=== PATIENT | female | born 1935 | race Caucasian/White ===

== ENCOUNTER → 2016-09-24 | Outpatient (CLI) | payer OTHER | LOC: FIMAGING 12:25 | PROVIDERS: ATTEND Physician Assistant | DX: M41.56 Other secondary scoliosis, lumbar region (principal); M47.896 Other spondylosis, lumbar region; M43.16 Spondylolisthesis, lumbar region ==

== ENCOUNTER 2016-11-03 06:06 | Emergency (ER) | payer OTHER ==
[2016-11-03] MEDS ORDERED: NS 1,000 ML IV ONE (06:34)
--- NOTE | 2016-11-03 06:39 | EDPHY ---
H & P Stated Complaint: retention, painful urination Source: Patient, EMS - Personal History Current Tetanus/Diphtheria Vaccine: Yes Current Tetanus Diphtheria and Acellular Pertussis (TDAP): Yes Tetanus Vaccine Date: 8 years ago - Medical/Surgical History Hx Asthma: No Hx Chronic Respiratory Disease: No Hx Diabetes: No Hx Cardiac Disease: Yes Hx Renal Disease: No Hx Cirrhosis: No Hx Alcoholism: No Hx HIV/AIDS: No Hx Splenectomy or Spleen Trauma: No Other PMH: LOW BACK PAIN,HTN,HIGH CHOL, KNEE SURGERY 07/2013/cardiac stents - Social History Smoking Status: Former smoker Time Seen by Provider: 11/03/16 06:13 HPI/ROS: HPI The patient presents with lower abdominal pains which have been present for the last several days and getting progressively worse. The pain is achy in nature and feels like a muscle strain to her. She has had difficulty urinating and this is been worse today. She was last able to urinate about 12 hours ago and feels she is retaining urine. She deals with constipation usually because of the opiate pain medication she takes for lower back pain, and says this is no worse. She has been coughing for the last 2 weeks, she was seen by her primary care doctor for this and diagnosed with an upper respiratory tract infection. She thinks she may have pulled a muscle from coughing.. REVIEW OF SYSTEMS Constitutional: No fever, no chills. Eyes: No discharge. ENT: No sore throat. Cardiovascular: No chest pain, no palpitations. Respiratory: Positive for cough, no shortness of breath. Gastrointestinal: See HPI Genitourinary: No hematuria. Musculoskeletal: No back pain. Skin: No rashes. Neurological: No headache. PMHx: Primary biliary cirrhosis, CAD, chronic low back pain Soc Hx: Lives at home with her PHYSICAL General Appearance: Alert, no distress Eyes: Pupils equal and round no pallor or injection ENT, Mouth: Mucous membranes moist Respiratory: There are no retractions, lungs are clear to auscultation Cardiovascular: Regular rate and rhythm Gastrointestinal: Abdomen is soft with tenderness in the lower quadrants without any rebound or guarding Neurological: A&O, moves all extremities Skin: Warm and dry, no rashes Musculoskeletal: Neck is supple non tender Extremities: symmetrical, full range of motion Psychiatric: Patient is oriented X 3, there is no agitation (Riguzzi,Sylvia) Constitutional: Initial Vital Signs Temperature (C) 36.8 C 11/03/16 06:08 Heart Rate 88 11/03/16 06:08 Respiratory Rate 16 11/03/16 06:08 Blood Pressure 157/105 H 11/03/16 06:08 O2 Sat (%) 94 11/03/16 06:08 O2 Delivery Mode Room Air O2 (L/minute) 2 Allergies/Adverse Reactions: Sulfa (Sulfonamide Antibiotics) Allergy (Verified 02/06/15 13:23) Home Medications: Medication Instructions Recorded Atorvastatin Calcium [Lipitor 20 20 mg PO DAILY 12/12/12 mg (*)] Cyclobenzaprine [Flexeril 10 MG 10 mg PO DAILY PRN 12/12/12 (*)] DULoxetine [Cymbalta 60 MG (*)] 60 mg PO DAILY 12/12/12 Diazepam [Valium 5 MG (*)] 5 mg PO DAILY PRN 12/12/12 Oxycodone HCl/Acetaminophen 1 each PO QID PRN 12/12/12 [Percocet 7.5-325 mg Tablet] Ranitidine HCl [Ranitidine HCl 150 150 mg PO BID 12/12/12 mg] Ursodiol 300 mg PO HS 12/12/12 CALCIUM CARBONATE/VITAMIN D3 2 tab PO DAILY 06/27/13 [CALCIUM + D 600 MG TABLET] Multivitamins [Multivitamin (*)] 1 each PO DAILY 06/27/13 Ursodiol [Actigall 300MG (*)] 600 mg PO DAILY 06/30/13 Polyethylene Glycol 3350 [Miralax 17 gm PO DAILY 10/03/13 17 gm (*)] Zolpidem Tartrate [Ambien 5MG (*)] 5 mg PO HS 10/03/13 Aspirin 325 mg PO DAILY #0 tablet 10/06/13 Clopidogrel Bisulfate [Plavix (*)] 75 mg PO DAILY #30 tab 10/06/13 Beta-Carotene(A) W-C & E/Min 1 tab PO BID 11/17/13 [Ocuvite] Labetalol HCl [Trandate 200 mg (*)] 200 mg PO BID 11/17/13 Losartan Potassium 12/18/14 AZITHROMYCIN [Z-PACK] 250 mg PO DAILY #6 tab 11/03/16 Cephalexin [Keflex (*)] 500 mg PO Q6H #28 cap 11/03/16 Medical Decision Making - Diagnostics Imaging Results: Imaging Impressions Chest X-Ray 11/03/16 06:34 Impression: 1. Early or impending CHF. 2. Suspect underlying left lower lobe pneumonia 3. New T11 compression. The patient Would benefit from a DEXA scan and possibly bone building pharmacologic intervention. Results discussed with Dr. Tracey at 7:35 AM Chest x-ray two views shows no infiltrate, interpreted by me, radiology interpretation is pending. (Sylvia River) ED Course/Re-evaluation: 6:15 a.m.- I met the paramedics at the bedside to obtain their report. Our nurse placed a Barreto with about 100 mL of urine out. The urine did appear cloudy. I performed an ultrasound of the bladder to look for any distension, however the bladder appeared decompressed. Basic labs will be checked and CT scan was ordered. I have also ordered a chest x-ray for the patient's cough. 7:00 a.m.- The patient's UA has returned demonstrating signs of urinary tract infection. She will be given ceftriaxone 1 g for this. Chest x-ray was performed and shows no signs of pneumonia. She also has a leukocytosis on her lab results with elevated lipase and alkaline phosphatase which I attribute to her primary biliary cirrhosis. She is currently awaiting a CT scan. The case will be signed out to the oncoming provider Dr. Tracey for ultimate disposition. (Sylvia River) 0740 chest x-ray results discussed with Dr. Rogers. Patient has a new left lower lobe infiltrate. Also has signs of early congestive heart failure and a new T11 compression fracture. CT scan results are not yet back. [address] Philippe[address] scan shows constipation. There is a left lower lobe changes consistent with an infiltrate. No other acute intra- abdominal findings. Given the urine and likely respiratory infection I will cover her with Keflex and azithromycin. Barreto catheter will be removed. She will follow up with her primary care doctor, Dr. Boyd, in 2-3 days for re- evaluation. (Avtar Tracey) Differential Diagnosis: This is an 81-year-old female with primary biliary cirrhosis, lower back pain, CAD who presents from home brought in by ambulance for lower abdominal pain associated with difficulty urinating. Differential diagnosis includes urinary retention, urinary tract infection, constipation, colitis, diverticulitis. (Sylvia River) - Data Points Laboratory Results: Laboratory Results 11/03/16 06:10 11/03/16 06:10 11/03/16 11/03/16 11/03/16 06:25 06:10 06:10 WBC 14.48 10^3/uL H 10^3/uL (3.80-9.50) RBC 4.72 10^6/uL 10^6/uL (4.18-5.33) Hgb 12.6 g/dL g/dL (12.6-16.3) Hct 38.2 % % (38.0-47.0) MCV 80.9 fL L fL (81.5-99.8) MCH 26.7 pg L pg (27.9-34.1) MCHC 33.0 g/dL g/dL (32.4-36.7) RDW 14.9 % % (11.5-15.2) Plt Count 580 10^3/uL H 10^3/uL (150-400) MPV 8.5 fL L fL (8.7-11.7) Neut % (Auto) 70.8 % % (39.3-74.2) Lymph % (Auto) 17.7 % % (15.0-45.0) Hampton % (Auto) 7.9 % % (4.5-13.0) Eos % (Auto) 2.2 % % (0.6-7.6) Baso % (Auto) 0.5 % % (0.3-1.7) Nucleat RBC Rel Count 0.0 % % (0.0-0.2) Absolute Neuts (auto) 10.26 10^3/uL H 10^3/uL (1.70-6.50) Absolute Lymphs (auto) 2.56 10^3/uL 10^3/uL (1.00-3.00) Absolute Monos (auto) 1.14 10^3/uL H 10^3/uL (0.30-0.80) Absolute Eos (auto) 0.32 10^3/uL 10^3/uL (0.03-0.40) Absolute Basos (auto) 0.07 10^3/uL 10^3/uL (0.02-0.10) Absolute Nucleated RBC 0.00 10^3/uL 10^3/uL (0-0.01) Immature Gran % 0.9 % % (0.0-1.1) Immature Gran # 0.13 10^3/uL H 10^3/uL (0.00-0.10) Sodium 133 mEq/L L mEq/L (134-144) Potassium 5.0 mEq/L mEq/L (3.5-5.2) Chloride 92 mEq/L L mEq/L (97-110) Carbon Dioxide 29 mEq/l mEq/l (22-31) Anion Gap 12 mEq/L mEq/L (8-16) BUN 19 mg/dL mg/dL (7-23) Creatinine 0.6 mg/dL mg/dL (0.6-1.0) Estimated GFR > 60 Glucose 99 mg/dL mg/dL (70-100) Calcium 9.7 mg/dL mg/dL (8.5-10.4) Total Bilirubin 0.5 mg/dL mg/dL (0.1-1.4) Conjugated Bilirubin 0.4 mg/dL mg/dL (0.0-0.5) Unconjugated Bilirubin 0.1 mg/dL mg/dL (0.0-1.1) AST 25 IU/L IU/L (14-46) ALT 34 IU/L IU/L (9-52) Alkaline Phosphatase 317 IU/L H IU/L (38-126) Total Protein 7.5 g/dL g/dL (6.3-8.2) Albumin 3.8 g/dL g/dL (3.5-5.0) Lipase 323.0 IU/L H IU/L (23-300) Urine Color YELLOW Urine Appearance MODERATELY TURBID Urine pH 5.0 (5.0-7.5) Ur Specific Hammond 1.017 (1.002-1.030) Urine Protein NEGATIVE (NEGATIVE) Urine Ketones NEGATIVE (NEGATIVE) Urine Blood NEGATIVE (NEGATIVE) Urine Nitrate POSITIVE H (NEGATIVE) Urine Bilirubin NEGATIVE (NEGATIVE) Urine Urobilinogen NEGATIVE EU EU (0.2-1.0) Ur Leukocyte Esterase 3+ H (NEGATIVE) Urine RBC 1-3 /hpf /hpf (0-3) Urine WBC 50-182 /hpf H /hpf (0-3) Ur Epithelial Cells NONE SEEN /lpf /lpf (NONE-1+) Urine Bacteria 3+ /hpf H /hpf (NONE SEEN) Urine Mucus TRACE /lpf /lpf (NONE-1+) Urine Glucose NEGATIVE (NEGATIVE) Medications Given: Discontinued Medications Hydromorphone HCl (Dilaudid) 0.5 mg IVP EDNOW ONE Stop: 11/03/16 07:02 Last Admin: 11/03/16 07:02 Dose: 0.5 mg Sodium Chloride (Ns) 1,000 mls @ 0 mls/hr IV ONCE ONE PRN Reason: Wide Open Stop: 11/03/16 06:35 Last Admin: 11/03/16 06:45 Dose: 1,000 mls Ceftriaxone Sodium/Dextrose (Rocephin 1 Gm (Premix)) 50 mls @ 100 mls/hr IV EDNOW ONE PRN Reason: Protocol Stop: 11/03/16 07:20 Last Admin: 11/03/16 07:00 Dose: 50 mls Departure - Departure Disposition: Home, Routine, Self-Care Clinical Impression: Pneumonia Urinary tract infection Qualifiers: Urinary tract infection type: acute cystitis Hematuria presence: without hematuria Qualified Code(s): N30.00 - Acute cystitis without hematuria Condition: Good Instructions: Urinary Tract Infection in Women (ED), Bacterial Pneumonia (ED) Additional Instructions: Take her full course of antibiotics. Follow up with Dr. Boyd in 2-3 days for re-evaluation. Return to the emergency depart for increasing fevers, chills, cough, shortness of breath, pain, or any other concerns. Referrals: Lindsey Boyd MD [Primary Care Provider] - As per Instructions Prescriptions: AZITHROMYCIN [Z-PACK] 250 mg PO DAILY #6 tab Cephalexin [Keflex (*)] 500 mg PO Q6H #28 cap
[2016-11-03 06:42] LABS: % IMMATURE GRANULYOCYTES 0.9 % (0.0-1.1); ABSOLUTE IMMATURE GRANULOCYTES 0.13 10^3/uL (0.00-0.10); ADD DIFF? NO; ADD MORPH? NO; ADD SCAN? NO; ATYPICAL LYMPHOCYTE FLAG 0 (0-99); FRAGMENT RBC FLAG 0 (0-99); HEMATOCRIT 38.2 % (38.0-47.0); HEMOGLOBIN 12.6 g/dL (12.6-16.3); LEFT SHIFT FLG 10 (0-99); LIPEMIA HEMOLYSIS FLAG 80 (0-99); MEAN CELL HEMOGLOBIN 26.7 pg (27.9-34.1); MEAN CELL VOLUME 80.9 fL (81.5-99.8); MEAN PLATELET VOLUME 8.5 fL (8.7-11.7); PLATELET CLUMPS FLAG 10 (0-99); PLATELET COUNT 580 10^3/uL (150-400); RED BLOOD CELL COUNT 4.72 10^6/uL (4.18-5.33); RED CELL DISTRIBUTION WIDTH 14.9 % (11.5-15.2)
[2016-11-03 06:45] LABS: COLOR YELLOW; LEUKOCYTE ESTERASE,URINE 3+ (NEGATIVE); NITRITE,URINE POSITIVE (NEGATIVE)
[2016-11-03 06:48] LABS: ALANINE AMINOTRANSFERASE 34 IU/L (9-52); ALBUMIN 3.8 g/dL (3.5-5.0); ALKALINE PHOSPHATASE 317 IU/L (38-126); ANION GAP 12 mEq/L (8-16); ASPARTATE AMINOTRANSFERASE 25 IU/L (14-46); BILIRUBIN,TOTAL 0.5 mg/dL (0.1-1.4); BILIRUBIN-CONJUGATED 0.4 mg/dL (0.0-0.5); BILIRUBIN-UNCONJUGATED 0.1 mg/dL (0.0-1.1); CALCIUM 9.7 mg/dL (8.5-10.4); CARBON DIOXIDE 29 mEq/l (22-31); CHLORIDE 92 mEq/L (97-110); CREATININE 0.6 mg/dL (0.6-1.0); GLOMERULAR FILTRATION RATE > 60; GLUCOSE 99 mg/dL (70-100); SODIUM 133 mEq/L (134-144); TOTAL PROTEIN 7.5 g/dL (6.3-8.2)
[2016-11-03 06:49] LABS: MUCUS TRACE /lpf (NONE-1+); WBC,URINE 50-182 /hpf (0-3)
[2016-11-03 06:52] LABS: BACTERIA 3+ /hpf (NONE SEEN)
[2016-11-03] MEDS ORDERED: HYDROmorphONE/DILAUDID 1 MG/ML SYR ONE (06:53)
[2016-11-03] MEDS ORDERED: IOPAMIDOL (ISOVUE-300) 100 ML BTL IV ONE (06:55)
[2016-11-03] MEDS ORDERED: HYDROmorphONE/DILAUDID 1 MG/ML SYR IVP ONE (07:01)
[2016-11-03 07:30] VITALS: RESP 14
[2016-11-03 08:11] VITALS: PULSE 77; O2SAT 94
[2016-11-03 09:03] VITALS: BP 153/73; TEMP 98.1
== END 2016-11-03 09:01 | disposition home or self-care (01) ==
LOC: EDUNIT#
PROC: 0T9B70Z Drainage of Bladder with Drainage Device, Via Natural or Artificial Opening (ICD-10-PCS; principal; 2016-11-03)
DX: N30.00 Acute cystitis without hematuria (principal); J18.9 Pneumonia, unspecified organism; I10 Essential (primary) hypertension; I25.10 Atherosclerotic heart disease of native coronary artery without angina pectoris; Z79.82 Long term (current) use of aspirin; Z87.891 Personal history of nicotine dependence; Z95.5 Presence of coronary angioplasty implant and graft
CPT/HCPCS: 51702; 74177; 96365; 96375; 99285; J0696; J1170; Q9967

== ENCOUNTER → 2016-11-05 | Outpatient (CLI) | payer OTHER | LOC: FIMAGING 16:09 | PROVIDERS: ATTEND Family Medicine | DX: S22.080A Wedge compression fracture of T11-T12 vertebra, initial encounter for closed fracture (principal); X58.XXXA Exposure to other specified factors, initial encounter ==

== ENCOUNTER 2016-11-13 13:38 | Day surgery (SDC) | payer OTHER ==
[2016-11-13] MEDS ORDERED: fentaNYL 100 MCG/2 ML INJ ONE (14:50)
[2016-11-13] MEDS ORDERED: MIDAZOLAM 2 MG/2 ML VIAL ONE (14:50)
[2016-11-13] MEDS ORDERED: IOPAMIDOL (ISOVUE-M 300) 15 ML VIAL ONE (15:16)
[2016-11-13] MEDS ORDERED: TRIAMCINOLONE ACETONIDE 200 MG/5 ML MDV IM ONE (15:17)
== END 2016-11-13 16:08 | disposition home or self-care (01) ==
LOC: FIMAGING 13:38
PROVIDERS: ATTEND Radiology Diagnostic Radiology
PROC: 3E0S3NZ Introduction of Analgesics, Hypnotics, Sedatives into Epidural Space, Percutaneous Approach (ICD-10-PCS; principal; 2016-11-13 15:20)
PROC: 3E0S33Z Introduction of Anti-inflammatory into Epidural Space, Percutaneous Approach (ICD-10-PCS; principal; 2016-11-13 15:20)
DX: M54.5 Low back pain (principal)
CPT/HCPCS: J2250; J3010; J3301; Q9967

== ENCOUNTER → 2016-11-20 | Outpatient (CLI) | payer OTHER | LOC: FIMAGING 16:16 | PROVIDERS: ATTEND Radiology Diagnostic Radiology | DX: I62.1 Nontraumatic extradural hemorrhage (principal); M51.86 Other intervertebral disc disorders, lumbar region; Z87.81 Personal history of (healed) traumatic fracture; Z79.82 Long term (current) use of aspirin ==

== ENCOUNTER → 2016-11-21 | Day surgery (SDC) | payer OTHER ==
[~2016-11-21] MED LIST: BUPIVACAINE 0.5% 30 ML SDV ONE; IOPAMIDOL (ISOVUE-M 300) 15 ML VIAL ONE; TRIAMCINOLONE ACETONIDE 200 MG/5 ML MDV IM ONE
== END | disposition home or self-care (01) ==
LOC: FIMAGING 11:13
PROVIDERS: ATTEND Radiology Diagnostic Radiology
DX: M54.14 Radiculopathy, thoracic region (principal)
CPT/HCPCS: J3301; Q9967

== ENCOUNTER 2016-12-09 12:31 | Day surgery (SDC) | payer OTHER ==
[~2016-12-09 12:31] MED LIST changes: -BUPIVACAINE 0.5% 30 ML SDV ONE; +DEXAMETHASONE 10 MG/ML VIAL IVP ONE; -IOPAMIDOL (ISOVUE-M 300) 15 ML VIAL ONE; +NS 1,000 ML IV ONE; -TRIAMCINOLONE ACETONIDE 200 MG/5 ML MDV IM ONE; +ceFAZolin 2 GM/DEXTROSE 100 ML IV ONE
[2016-12-09 13:21] LABS: % IMMATURE GRANULYOCYTES 0.4 % (0.0-1.1); ABSOLUTE IMMATURE GRANULOCYTES 0.04 10^3/uL (0.00-0.10); ADD DIFF? NO; ADD MORPH? NO; ADD SCAN? NO; ATYPICAL LYMPHOCYTE FLAG 0 (0-99); FRAGMENT RBC FLAG 0 (0-99); HEMATOCRIT 37.4 % (38.0-47.0); HEMOGLOBIN 12.5 g/dL (12.6-16.3); LEFT SHIFT FLG 0 (0-99); LIPEMIA HEMOLYSIS FLAG 80 (0-99); MEAN CELL HEMOGLOBIN 27.1 pg (27.9-34.1); MEAN CELL HEMOGLOBIN CONCENTR. 33.4 g/dL (32.4-36.7); MEAN CELL VOLUME 81.1 fL (81.5-99.8); MEAN PLATELET VOLUME 8.3 fL (8.7-11.7); PLATELET CLUMPS FLAG 10 (0-99); PLATELET COUNT 327 10^3/uL (150-400); RED BLOOD CELL COUNT 4.61 10^6/uL (4.18-5.33); RED CELL DISTRIBUTION WIDTH 17.3 % (11.5-15.2)
[2016-12-09 13:31] LABS: INR 0.98 (0.83-1.16); PROTIME(PATIENT) 12.9 SEC (12.0-15.0)
[2016-12-09 13:32] LABS: APTT 25.7 SEC (23.0-38.0)
[2016-12-09] MEDS ORDERED: DEXAMETHASONE 10 MG/ML VIAL ONE (13:34)
[2016-12-09] MEDS ORDERED: CEFAZOLIN 2 GM/DEXTROSE/100 ML BAG IV ONE (13:35)
[2016-12-09] MEDS ORDERED: MIDAZOLAM 2 MG/2 ML VIAL ONE (14:11)
[2016-12-09] MEDS ORDERED: PROPOFOL/EMULSION 500 MG/50 ML BOTTLE IV ONE (14:21)
[2016-12-09] MEDS ORDERED: fentaNYL 100 MCG/2 ML INJ ONE (14:24)
[2016-12-09] MEDS ORDERED: IOPAMIDOL (ISOVUE-300) 100 ML BTL ONE (14:56)
[2016-12-09] MEDS ORDERED: BUPIVACAINE 0.5% 30 ML SDV ONE (14:56)
[2016-12-09] MEDS ORDERED: LIDOCAINE 1% 300 MG/30 ML SDV ONE (14:56)
[2016-12-09] MEDS ORDERED: ONDANSETRON DISINTEGRATING 4 MG TAB PO PRN (15:46)
[2016-12-09] MEDS ORDERED: ONDANSETRON 4 MG/2 ML VIAL IVP PRN (15:46)
== END 2016-12-09 19:27 | disposition home or self-care (01) ==
LOC: FIMAGING 12:31
PROVIDERS: ATTEND Family Medicine
PROC: 0PU43JZ Supplement Thoracic Vertebra with Synthetic Substitute, Percutaneous Approach (ICD-10-PCS; principal; 2016-12-09 14:00)
DX: M48.54XG Collapsed vertebra, not elsewhere classified, thoracic region, subsequent encounter for fracture with delayed healing (principal); M54.6 Pain in thoracic spine; I25.10 Atherosclerotic heart disease of native coronary artery without angina pectoris; Z95.5 Presence of coronary angioplasty implant and graft
CPT/HCPCS: C1725; J0690; J2250; J2704; J3010; Q9967

== ENCOUNTER → 2016-12-24 | Outpatient (CLI) | payer OTHER | LOC: FIMAGING 10:10 | PROVIDERS: ATTEND Family Medicine | DX: S22.080A Wedge compression fracture of T11-T12 vertebra, initial encounter for closed fracture (principal) ==

== ENCOUNTER 2016-12-25 13:09 | Day surgery (SDC) | payer OTHER ==
[2016-12-25] MEDS ORDERED: DEXAMETHASONE 10 MG/ML VIAL IVP ONE (13:17)
[2016-12-25] MEDS ORDERED: ceFAZolin 2 GM/DEXTROSE 100 ML IV ONE (13:17)
[2016-12-25] MEDS ORDERED: NS 1,000 ML IV ONE (13:17)
[2016-12-25] MEDS ORDERED: MIDAZOLAM 2 MG/2 ML VIAL ONE (13:59)
[2016-12-25] MEDS ORDERED: CEFAZOLIN 2 GM/DEXTROSE/100 ML BAG IV ONE (13:59)
[2016-12-25] MEDS ORDERED: DEXAMETHASONE 10 MG/ML VIAL ONE (13:59)
[2016-12-25] MEDS ORDERED: fentaNYL 100 MCG/2 ML INJ ONE ×2 (13:59→15:09)
[2016-12-25] MEDS ORDERED: PROPOFOL/EMULSION 500 MG/50 ML BOTTLE IV ONE (15:10)
[2016-12-25] MEDS ORDERED: LIDOCAINE 1% 300 MG/30 ML SDV ONE (15:56)
[2016-12-25] MEDS ORDERED: BUPIVACAINE 0.5% 30 ML SDV ONE (15:56)
[2016-12-25] MEDS ORDERED: NALOXONE HCL 0.4 MG/ML INJ IVP PRN (16:18)
[2016-12-25] MEDS ORDERED: ONDANSETRON 4 MG/2 ML VIAL IVP PRN ×2 (16:18→16:43)
[2016-12-25] MEDS ORDERED: fentaNYL 100 MCG/2 ML INJ IVP PRN (16:18)
[2016-12-25] MEDS ORDERED: HYDROCODONE/APAP 5/325 TAB PO PRN (16:18)
[2016-12-25] MEDS ORDERED: OXYCODONE/APAP 5/325 TAB PO PRN (16:18)
[2016-12-25] MEDS ORDERED: PROMETHAZINE HCL 25 MG/ML INJ IVP PRN (16:18)
--- NOTE | 2016-12-25 16:20 | POSTANESTH ---
Post Anesthetic Evaluation Cardiovascular Status: Normal, Stable Respiratory Status: Normal, Stable Level of Consciousness/Mental Status: Can Participate in Eval, Alert and Oriented Pain Control: Adequate, Prn Tx Ordered Nausea/Vomiting Control: Adequate, Prn Tx Ordered Complications Possibly Related to Anesthesia: None Noted
[2016-12-25] MEDS ORDERED: ONDANSETRON DISINTEGRATING 4 MG TAB PO PRN (16:43)
[2016-12-25 17:05] VITALS: TEMP 98.6
[2016-12-25 17:08] VITALS: RESP 13
[2016-12-25 17:59] VITALS: PULSE 79
[2016-12-25 18:09] VITALS: BP 178/95; O2SAT 94
[2016-12-25] MEDS ORDERED: METHOCARBAMOL 500 MG TAB PO SCH (21:00)
== END 2016-12-25 18:27 | disposition home or self-care (01) ==
LOC: FIMAGING 13:09
PROVIDERS: ATTEND Radiology Diagnostic Radiology
PROC: 0PU43JZ Supplement Thoracic Vertebra with Synthetic Substitute, Percutaneous Approach (ICD-10-PCS; principal; 2016-12-25 17:00)
PROC: 0PS43ZZ Reposition Thoracic Vertebra, Percutaneous Approach (ICD-10-PCS; principal; 2016-12-25 17:00)
DX: M48.54XA Collapsed vertebra, not elsewhere classified, thoracic region, initial encounter for fracture (principal); I25.10 Atherosclerotic heart disease of native coronary artery without angina pectoris; Z95.5 Presence of coronary angioplasty implant and graft
CPT/HCPCS: J0690; J2250; J2704; J3010

== ENCOUNTER → 2017-01-02 | Outpatient (CLI) | payer OTHER | LOC: BMCIMAGING 09:37 | PROVIDERS: ATTEND Internal Medicine | DX: K74.3 Primary biliary cirrhosis (principal) ==

== ENCOUNTER 2017-01-10 11:16 | Inpatient (IN) | payer OTHER ==
[2017-01-10] MEDS: ZOLPIDEM TARTRATE 5 MG TAB PO SCH (09:05)
[2017-01-10] MEDS ORDERED: ONDANSETRON 4 MG/2 ML VIAL IVP PRN (11:39)
[2017-01-10] MEDS ORDERED: ONDANSETRON DISINTEGRATING 4 MG TAB PO PRN (11:39)
[2017-01-10 12:28] LABS: % IMMATURE GRANULYOCYTES 0.7 % (0.0-1.1); ABSOLUTE IMMATURE GRANULOCYTES 0.08 10^3/uL (0.00-0.10); ADD DIFF? NO; ADD MORPH? NO; ADD SCAN? NO; ATYPICAL LYMPHOCYTE FLAG 50 (0-99); FRAGMENT RBC FLAG 0 (0-99); HEMATOCRIT 33.3 % (38.0-47.0); HEMOGLOBIN 11.6 g/dL (12.6-16.3); LEFT SHIFT FLG 0 (0-99); LIPEMIA HEMOLYSIS FLAG 90 (0-99); MEAN CELL HEMOGLOBIN 28.6 pg (27.9-34.1); MEAN CELL HEMOGLOBIN CONCENTR. 34.8 g/dL (32.4-36.7); MEAN CELL VOLUME 82.2 fL (81.5-99.8); MEAN PLATELET VOLUME 8.2 fL (8.7-11.7); PLATELET CLUMPS FLAG 0 (0-99); PLATELET COUNT 309 10^3/uL (150-400); RED BLOOD CELL COUNT 4.05 10^6/uL (4.18-5.33); RED CELL DISTRIBUTION WIDTH 17.4 % (11.5-15.2)
[2017-01-10 12:40] LABS: ALANINE AMINOTRANSFERASE 57 IU/L (9-52); ALBUMIN 3.9 g/dL (3.5-5.0); ALKALINE PHOSPHATASE 192 IU/L (38-126); ANION GAP 12 mEq/L (8-16); ASPARTATE AMINOTRANSFERASE 36 IU/L (14-46); BILIRUBIN,TOTAL 0.8 mg/dL (0.1-1.4); CALCIUM 9.4 mg/dL (8.5-10.4); CARBON DIOXIDE 26 mEq/l (22-31); CHLORIDE 84 mEq/L (97-110); CREATININE 0.7 mg/dL (0.6-1.0); GLOMERULAR FILTRATION RATE > 60; GLUCOSE 86 mg/dL (70-100); POTASSIUM 3.7 mEq/L (3.5-5.2); SODIUM 122 mEq/L (134-144); TOTAL PROTEIN 6.5 g/dL (6.3-8.2)
[2017-01-10] MEDS: NS 1,000 ML IV SCH ×2 (12:56→23:25)
[2017-01-10 13:11] LABS: CORTISOL-AM 8.3 ug/dL (4.5-22.7)
[2017-01-10] MEDS: oxyCODONE IR 5 MG TAB PO PRN ×2 (13:43→21:09)
[2017-01-10 14:04] LABS: COLOR YELLOW; LEUKOCYTE ESTERASE,URINE NEGATIVE (NEGATIVE); NITRITE,URINE NEGATIVE (NEGATIVE)
[2017-01-10 14:09] LABS: MUCUS TRACE /lpf (NONE-1+)
[2017-01-10 14:10] LABS: RBC,URINE NONE SEEN /hpf (0-3)
[2017-01-10] MEDS ORDERED: CYCLOBENZAPRINE 10 MG TAB PO PRN (14:53)
[2017-01-10] MEDS ORDERED: DIAZEPAM 5 MG TAB PO PRN (14:53)
--- NOTE | 2017-01-10 15:09 | GHP ---
[f rep st] HISTORY AND PHYSICAL DATE OF ADMISSION: 01/10/2017 CHIEF COMPLAINT: Weakness, anorexia, stomach upset. HISTORY OF PRESENT ILLNESS: Ms Bermudez is an 81-year-old with a history significant for heart diseas e, status post stents, pulmonary hypertension, and primary biliary cirrhosis. She has also been str uggling recently with compression fractures and severe back pain, which started after a URI in October . She is in today after a week of a constellation of symptoms, including low energy, anorexia, poor p.o. intake. She said her symptoms started Thursday. She has had a mild headache, stomach upset, so me nausea, intermittent diarrhea. She has had poor p.o. intake because of this, and has had poor ur ine output as well. Initially lasted for few days. Thought she was getting a bit better, mid week, and then it got worse over the last couple days, to a point where she went in to see her primary ca re provider today, who felt she needed admission due to her symptoms. She has not had any fevers or chills. No vision, hearing, speech or swallowing issues, no chest pains, no shortness of breath, o r cough. No significant abdominal pain. Just a queasy upset stomach. No urinary symptoms, except for decreased urine output. Her bowel movements have been loose. She denies any joint pains or swe lling. No numbness, but sort of diffuse nonspecific weakness and low energy. She has had no rash. As noted above, she has been struggling with compression fractures. She has been followed closely b cristian Alejandre, and due to unremitting back pain, she was eventually diagnosed with a compression fractur e. It was unclear how acute this was, so she underwent 2 epidural steroid injections, on November 13 and . It sounds like she may have also had a trigger point injection on the as well. On December 09 and , she had 2 kyphoplasties, initially on T11 and again on T12 on December 25. She had excellent p ain relief from those procedures and eventually wean herself off her oxycodone 3 days ago and she st opped her Cymbalta about a week ago. As best as I can tell, she has decided to stop both of these o n her own. She feels the oxycodone is not a good long-term medication and 1 of the ER physicians ma de her feel badly for taking it. She stopped the Cymbalta because she has been struggling with what sounds like urinary hesitancy for years, and she thought it might be on account of the Cymbalta. T here have been no other new changes in her medications. REVIEW OF SYSTEMS: A 10-point review of systems was done with pertinent positives and negatives pre sent in the HPI. This includes constitutional, eyes, HEENT, heart, lungs, abdomen, urinary/kidneys, musculoskeletal, neurologic, and psychiatric. PAST MEDICAL HISTORY: 1. Coronary artery disease, followed by Dr. Grimes, status post stenting of her LAD and RCA, most r ecently, 2013. 2. Hypertension. 3. Dyslipidemia. 4. History of pulmonary hypertension. The last echo I could see was done in 2013, with a right emely tricular systolic pressure 52. 5. Moderate mitral regurgitation. 6. Ischemic cardiomyopathy. Again most recent echo was in 2013, which showed an EF of 45%. Clinic note since then have noted normal LV function. 7. Primary biliary cirrhosis, followed by Dr. Fraire. 8. History of degenerative disk and degenerative joint disease with chronic right lower buttock dutch n. 9. Spondylosis. 10. Osteoporosis with a history of compression fractures. 11. Macular degeneration. MEDICATIONS: Please see reconciled med sheet. ALLERGIES: Sulfa. SOCIAL HISTORY: She is . She and her live independently in their own home. She typ ically does not need a cane or walker to ambulate. She does not smoke and typically drinks about 2 glasses of wine per night. However has decreased that recently due to her illness. FAMILY HISTORY: Mother had osteoporosis, father in an MVA. PHYSICAL EXAMINATION: VITAL SIGNS: She has been afebrile, heart rate 75, blood pressure 170/87, re spirations 16, she is 95% on room air. GENERAL: She is an uncomfortable 81-year-old, in moderate d istress. She is alert and oriented, although her memory is poor. HEENT: Pupils are equal. Extrao cular movements intact. Mucous membranes are moist. Oropharynx is clear. NECK: Supple. No adeno alec. Thyroid within normal limits. HEART: Regular rate and rhythm. No murmur, gallop, or rub. LUNGS: Clear bilaterally without wheeze, rhonchi, or rales. SPINE: Nontender to palpation. ABDO MEN: Soft. No masses. No guarding, positive bowel sounds. EXTREMITIES: No clubbing, cyanosis, o r edema. MUSCULOSKELETAL: No joint effusions or deformities noted. SKIN: Intact, multiple ecchym oses and occasional petechiae noted Skin is ultimately thin. NEUROLOGIC: Her speech is fluent. Sh e is alert. She is moving all 4 extremities. Sensation grossly intact. LABORATORY DATA: CBC shows white count 11.2, hemoglobin 11.6, with a platelet count of 309. Electr olytes show sodium 122, potassium 3.7, BUN 12 with a creatinine of 0.7. LFTs are fairly unremarkabl e. Iron sat is low with normal iron levels. TSH is 3.08. Initial cortisol is 8.3. Chest x-ray, p ersonally reviewed and interpreted, shows no obvious pneumonia. Lungs are clear. Abdominal x-ray i s unremarkable. ASSESSMENT AND PLAN: 81-year-old, with multiple vague complaints, including fatigue, malaise, weakn ess, and associated anorexia, abdominal upset, and a poor p.o. intake for several days. She is at [facility] for adrenal insufficiency, given her multiple steroid injections in November. It is unclear whether she received steroids in her kyphoplasty. She also has hyponatremia, which could also be contributi ng to her symptoms of unclear etiology, although she has had poor p.o. intake and she has recently s topped her Cymbalta and oxycodone, and can be having some mild withdrawal effects from that. PLAN: 1. Failure to thrive. Weakness, anorexia, unclear etiology. Possible adrenal insufficiency. Plan will be to do Cortrosyn stim test in the morning. Her vital signs are stable. I will not start her on steroids at this time and wait for results. She is not in adrenal crisis. Additionally I can us e Decadron, if needed, as that will not be measured in the assay; however, it can decrease natural c ortisol release and affect the assay. Rule out for infection, getting a urinalysis. Her chest x-ray looks clear. Hydrate her, as she does appear dry on exam. 2. Hyponatremia, unclear etiology, although she appears dry on exam and by history. We will give h er gentle fluids and monitor her sodium closely. If her sodium continues to drop, we will need to s top her IV fluids and place her on a fluid restriction. I will check urine electrolytes, and osmola lity. 3. Hypertension. Her blood pressure is quite elevated at this time. We will resume her usual medi cations, once they have been reconciled. 4. Low back pain. This is her chronic back pain, which has been present for many years and is unch anged, per patient. We will provide pain medications as needed, and consider resuming Cymbalta. I will not further evaluate this at this time, since she has had a number of MRIs recently. 5. Coronary artery disease with a history of ischemic cardiomyopathy. No cardiac symptoms at this time to be worried about. However, given her history and possible ischemic cardiomyopathy, we will repeat an echo while she is here in the hospital, as I do not find a recent echo done in her clinic notes. 6. Pulmonary hypertension with some chronic respiratory failure, previously followed by Dr. Machuca. Again repeat echo as noted. 7. Primary biliary cirrhosis. Recently saw Dr. Fraire in clinic, who felt that this is not her is malia, as her labs and ultrasound are improving. 8. Osteoporosis, status post Fosamax treatment. 9. Macular degeneration. 10. DVT prophylaxis. Patient medium risk. We will start her on low-molecular weight heparin. /[id number]/MODL
[2017-01-10] MEDS: LOSARTAN POTASSIUM 25 MG TAB PO SCH (16:40)
[2017-01-10] MEDS: LABETALOL HCL 200 MG TAB PO SCH ×2 (16:40→21:09)
[2017-01-10] MEDS: URSODIOL 300 MG CAP PO SCH (21:09)
[2017-01-11] MEDS: oxyCODONE IR 5 MG TAB PO PRN ×4 (03:59→23:47)
[2017-01-11 04:58] LABS: % IMMATURE GRANULYOCYTES 1.2 % (0.0-1.1); ABSOLUTE NRBC COUNT 0.02 10^3/uL (0-0.01); ADD DIFF? NO; ADD MORPH? NO; ADD SCAN? NO; ATYPICAL LYMPHOCYTE FLAG 70 (0-99); FRAGMENT RBC FLAG 0 (0-99); HEMATOCRIT 34.2 % (38.0-47.0); HEMOGLOBIN 11.4 g/dL (12.6-16.3); LEFT SHIFT FLG 10 (0-99); LIPEMIA HEMOLYSIS FLAG 80 (0-99); MEAN CELL HEMOGLOBIN CONCENTR. 33.3 g/dL (32.4-36.7); MEAN PLATELET VOLUME 8.1 fL (8.7-11.7); NRBC-AUTO% 0.2 % (0.0-0.2); PLATELET CLUMPS FLAG 0 (0-99); PLATELET COUNT 326 10^3/uL (150-400); RED BLOOD CELL COUNT 4.07 10^6/uL (4.18-5.33); RED CELL DISTRIBUTION WIDTH 17.9 % (11.5-15.2)
[2017-01-11 05:25] LABS: ANION GAP 9 mEq/L (8-16); CALCIUM 8.7 mg/dL (8.5-10.4); CARBON DIOXIDE 26 mEq/l (22-31); CHLORIDE 96 mEq/L (97-110); CREATININE 0.6 mg/dL (0.6-1.0); GLOMERULAR FILTRATION RATE > 60; GLUCOSE 84 mg/dL (70-100); POTASSIUM 3.5 mEq/L (3.5-5.2); SODIUM 131 mEq/L (134-144)
[2017-01-11 05:49] LABS: CORTISOL-AM 6.3 ug/dL (4.5-22.7)
[2017-01-11] MEDS ORDERED: COSYNTROPIN 0.25 MG/2 ML SYRINGE IVP ONE (06:00)
[2017-01-11] MEDS: ENOXAPARIN 40 MG/0.4 ML SYR SC SCH (08:46)
[2017-01-11] MEDS: ACETAMINOPHEN 325 MG TAB PO PRN ×2 (08:48→20:34)
[2017-01-11] MEDS: PANTOPRAZOLE SODIUM 40 MG TAB PO SCH (08:49)
[2017-01-11] MEDS: LOSARTAN POTASSIUM 25 MG TAB PO SCH (08:49)
[2017-01-11] MEDS: ASPIRIN 325 MG TAB PO SCH (08:49)
[2017-01-11] MEDS: ASCORBIC ACID 500 MG TAB PO SCH (08:50)
[2017-01-11] MEDS: LABETALOL HCL 200 MG TAB PO SCH ×2 (08:50→20:33)
[2017-01-11] MEDS: VITAMIN B COMPLEX 1 EA CAP/TAB PO SCH (08:50)
[2017-01-11] MEDS: ATORVASTATIN CALCIUM 20 MG TAB PO SCH (08:50)
[2017-01-11] MEDS: CALCIUM CARB W/VIT D 500 MG TAB PO SCH (08:50)
[2017-01-11] MEDS: MULTIVITAMINS 1 EACH TAB PO SCH (08:50)
[2017-01-11] MEDS ORDERED: VITAMIN B COMPLEX 1 EA CAP/TAB PO SCH (09:00)
[2017-01-11] MEDS ORDERED: NON-FORMULARY NEW DRUG (Omeprazole [Prilosec 20 Mg] 20 MG) PO SCH (09:00)
[2017-01-11] MEDS ORDERED: IBUPROFEN 200 MG TAB PO PRN (09:09)
--- NOTE | 2017-01-11 09:17 | HOSPPROG ---
Hospitalist Progress Note Assessment/Plan: 81-year-old with multiple medical issues is admitted with altered mental status weakness, nausea vomiting and stomach upset. Evaluation has been unremarkable except for hyponatremia and possible opioid withdrawal. She has improved significantly over night with hydration and resumption of oxycodone as needed. She has no further GI upset and is stronger and more alert today. There is no infection noted. Her Cortrosyn stim test was adequate. # hyponatremia, likely multifactorial due to some SAIDH and dehydration. It has responded to IV fluids. I have also discontinued her hydrochlorothiazide. * Continue to monitor and decrease IV fluids * Continue to hold hydrochlorothiazide for now # mild opioid withdrawal. Patient improving will continue oxycodone at her usual dose of 4 per day. She can cut this down to 3 per day as an outpatient. * Currently complaining of pain in her right buttock which is chronic. # chronic pain with continuous opioid dependence. Continue oxycodone for now will defer to her primary care provider regarding weaning at as needed she has stopped her Cymbalta, she feels this causes some urinary retention. Since she has been off it for over a week I will continue whole to hold it for now unless her pain gets significantly worse and that could be reacted as well. # compression fractures recent kyphoplasty and epidural steroid injection. Her Cortrosyn stim test is just adequate at arise of 12. Certainly opioids can decrease the a.m. cortisol level. Given her normal to high blood pressure readings and normalizing lecture like to do not feel she is in need of steroids at this time and will hold them and follow her symptoms. # hypertension. Significantly elevated yesterday but improving today back on her medications will continue to monitor. # coronary artery disease: Asymptomatic # ischemic cardiomyopathy with valvular heart disease, last echo I saw was 3 years ago. There was talk in the clinic notes about rechecking this it has not been done. That will be ordered for this morning to make sure that this is not worse and contributing to her current symptoms. # dyslipidemia on a statin # pulmonary hypertension, recheck echo today # primary biliary cirrhosis, followed by Dr. Fraire this is apparently stable. Subjective: Patient much improved today. She is more alert still has some confusion I am not sure how much of this may be baseline exacerbated by her hospital stay. She says her pain is well controlled currently, but continues to need occasional oxycodone for her lower back and buttock pain. She has had no chest pain shortness of breath or any other complaints Objective: Vital Signs Temp Pulse Resp BP Pulse Ox 36.9 C 83 18 164/74 H 96 01/11/17 07:50 01/11/17 07:50 01/11/17 07:50 01/11/17 07:50 01/11/17 07:50 Laboratory Results 01/11/17 04:37 01/11/17 04:37 01/10/17 01/11/17 01/12/17 05:59 05:59 05:59 Intake Total 1847 Output Total 1200 Balance 647 - Physical Exam Constitutional: no apparent distress, not in pain Eyes: PERRL, anicteric sclera, EOMI Ears, Nose, Mouth, Throat: moist mucous membranes Cardiovascular: regular rate and rhythym, no murmur, rub, or gallop, pulses symmetric bilaterally, No edema Respiratory: no respiratory distress, no rales or rhonchi, clear to auscultation Gastrointestinal: normoactive bowel sounds, soft, non-tender abdomen, no palpable masses Genitourinary: no bladder fullness Skin: warm, normal color Musculoskeletal: no muscle tenderness, no joint effusions Neurologic: No facial droop Psychiatric: interacting appropriately, not anxious, not encephalopathic ICD10 Worksheet Patient Problems: Problems Problem Status Onset Osteoarthritis of knee Acute Chronic Disease Mgmt/Transitional Care Acute Systolic CHF, acute Acute Systolic and diastolic CHF, acute Acute
[2017-01-11] MEDS: URSODIOL 300 MG CAP PO SCH ×2 (10:49→20:33)
--- NOTE | 2017-01-11 12:10 | ECHO ---
[id number] + + [address] : : [place] [address] : : [phone] + + Adult Echocardiographic Report + -----+ :Name: LB BLAKE Ab Date: 01/11/2017 07:08 AM : : Hospital Admission Number: [id number] Location : 145: :: 1935 Gender: Female Height: 65 in : :Age: 81 yrs Race: WH,White Weight: 110 lb : :Reason For Study: Weakness : : BSA: 1.5 meters2 : + -----+ MMode/2D Measurements \T\ Calculations IVSd: 0.69 cm LVIDd: 4.5 cm FS: 43.6 % Ao root diam: LVPWd: 0.76 cm LVIDs: 2.6 cm EDV(Teich): 1.9 cm 93.5 ml LA dimension: ESV(Teich): 4.0 cm 23.5 ml EF(Teich): 74.9 % LVLd ap4: 7.3 cm SV(MOD-sp4): EDV(MOD-sp4): 51.0 ml 77.0 ml LVLs ap4: 5.7 cm ESV(MOD-sp4): 26.0 ml EF(MOD-sp4): 66.2 % Normal Measurement Values: + + :LVIDd (3.5-5.7cm) IVSd (0.6-1.1cm) LVPWd (0.6-1.1cm) Aortic Root (2.0-3.7cm)Left Atrium (1.5-4.0cm): :LV Vol(d) (76-115ml) LV Vol(s) (29-48ml) Ejec Fraction (50-65%)PV Chacorta (0.6- 1.2m/s) TV Chacorta (0.4-1.0m/s) : :MV E Chacorta (0.8-1.0m/s)MV A Chacorta (0.3-1.0m/s)LVOT Chacorta (0.7-1.2m/s) Asc Ao Chacorta ( 0.9-1.8m/s) : + + Doppler Measurements \T\ Calculations MV E max chacorta: 81.9 cm/sec Ao V2 max: 16.3 cm/sec TR max chacorta: 343.4 cm/sec MV A max chacorta: 110.6 cm/sec Ao max P.11 mmHg TR max P.2 mmHg MV E/A: 0.74 Ao mean P.6 mmHg RAP systole: 10.0 mmHg Ao V2 mean: 99.4 cm/sec RVSP(TR): 57.2 mmHg Ao V2 VTI: 33.3 cm Left Ventricle The left ventricle is normal in size. There is normal left ventricular wall thickness. Left ventricular systolic function is normal. Ejection Fraction = 60-65%. Grade I diastolic dysfunction. The left ventricular wall motion is normal. Right Ventricle The right ventricle is normal in size and function. Atria The left atrium is severely dilated. Right atrial size is normal. Mitral Valve The mitral valve is normal in structure and function. There is no evidence of mitral valve prolapse. There is no mitral valve stenosis. There is mild mitral regurgitation. Tricuspid Valve Normal tricuspid valve. There is mild tricuspid regurgitation. Right ventricular systolic pressure is 52-58mmHg. There is Doppler evidence for moderate pulmonary hypertension. Aortic Valve The aortic valve is trileaflet. The aortic valve opens well. Mildly sclerotic NCC of the aortic valve. There is no aortic stenosis. There is no aortic insufficiency. Pulmonic Valve The pulmonic valve is normal in structure and function. There is no pulmonic valvular regurgitation. Great Vessels The aortic root is normal size. Pericardium/Pleural There is no pericardial effusion. Conclusion A complete two-dimensional transthoracic echocardiogram was performed (2D, M-mode, Doppler and color flow Doppler). Left ventricular systolic function is normal. Ejection Fraction = 60-65%. The left ventricular wall motion is normal. Grade I diastolic dysfunction The left atrium is severely dilated. Mildly sclerotic NCC of the aortic valve. No There is mild mitral regurgitation. There is mild tricuspid regurgitation. Right ventricular systolic pressure is 52-58mmHg. There is Doppler evidence for moderate pulmonary hypertension. Compared with 10/06/2013, LV systolic function has normalized and previously noted wall motion abnormalities are resolved Final Reading Physician: Dr Alice Voss electronically signed on 01/11/2017 12:08 PM Ordering Physician: Faustina Fulton Performed By: Lynn Herrera, FRANCISCO JCS
[2017-01-11] MEDS: POLYETHYLENE GLYCOL 3350 17 GM PKT PO SCH (19:37)
[2017-01-11 19:47] VITALS: RESP 16
[2017-01-11] MEDS: ZOLPIDEM TARTRATE 5 MG TAB PO SCH (20:33)
[2017-01-11] MEDS ORDERED: PRAZOSIN HCL 1 MG CAP PO SCH (21:00)
[2017-01-12 04:53] LABS: ANION GAP 7 mEq/L (8-16); CALCIUM 8.5 mg/dL (8.5-10.4); CARBON DIOXIDE 25 mEq/l (22-31); CHLORIDE 101 mEq/L (97-110); CREATININE 0.6 mg/dL (0.6-1.0); GLOMERULAR FILTRATION RATE > 60; GLUCOSE 89 mg/dL (70-100); POTASSIUM 3.6 mEq/L (3.5-5.2); SODIUM 133 mEq/L (134-144)
[2017-01-12 07:27] VITALS: BP 163/81; PULSE 80; TEMP 98.6; O2SAT 99
[2017-01-12] MEDS: oxyCODONE IR 5 MG TAB PO PRN (08:46)
[2017-01-12] MEDS: LABETALOL HCL 200 MG TAB PO SCH (08:47)
[2017-01-12] MEDS: ASPIRIN 325 MG TAB PO SCH (08:49)
[2017-01-12] MEDS: ASCORBIC ACID 500 MG TAB PO SCH (08:49)
[2017-01-12] MEDS: VITAMIN B COMPLEX 1 EA CAP/TAB PO SCH (08:49)
[2017-01-12] MEDS: MULTIVITAMINS 1 EACH TAB PO SCH (08:49)
[2017-01-12] MEDS: PANTOPRAZOLE SODIUM 40 MG TAB PO SCH (08:50)
[2017-01-12] MEDS: URSODIOL 300 MG CAP PO SCH (08:50)
[2017-01-12] MEDS: ATORVASTATIN CALCIUM 20 MG TAB PO SCH (08:50)
[2017-01-12] MEDS: LOSARTAN POTASSIUM 25 MG TAB PO SCH (08:50)
[2017-01-12] MEDS: CALCIUM CARB W/VIT D 500 MG TAB PO SCH (08:50)
[2017-01-12] MEDS: POLYETHYLENE GLYCOL 3350 17 GM PKT PO SCH (08:53)
[2017-01-12] MEDS: ENOXAPARIN 40 MG/0.4 ML SYR SC SCH (08:57)
--- NOTE | 2017-01-12 10:52 | GDS ---
[f rep st] DISCHARGE SUMMARY DIAGNOSES: 1. Altered mental status with weakness and balance issues. 2. Hyponatremia. 3. Jyzde-dw-usxinyt back pain with continuous narcotic dependency, recent discontinuation of narcot ics. 4. Compression fractures with recent kyphoplasties. 5. Hypertension. 6. Asymptomatic coronary artery disease. 7. History of ischemic cardiomyopathy with valvular heart disease, repeat echocardiogram this admis santos shows improved ejection fraction. 8. Dyslipidemia, on a statin. 9. History of pulmonary hypertension with stable readings on echo. 10. Primary biliary cirrhosis followed by Dr. Watson. PROCEDURES DONE: Echocardiogram showing an EF of 60% to 65%. Normal left ventricular wall motion. Grade 1 diastolic dysfunction. Doppler evidence for moderate pulmonary hypertension with an RVSP o f 52-58. HOSPITAL COURSE: The patient is an 81-year-old with a history significant for chronic low back pain for which she is followed by Dr. Zamudio. She developed a compression fracture and underwent 2 ep idural steroid injections, which did not relieve the pain adequately, and then had a kyphoplasty at T11 and a second kyphoplasty after that by Dr. Alejandre. She initially felt quite well and stopped her C ymbalta and oxycodone. However, the week prior to admission she developed increased lethargy, fatig ue, nausea, and GI upset. She was admitted to the hospital, placed on IV fluids, resumed her Percoc et, and actually improved significantly over the course of her hospitalization. Of note, her sodium was down to 122 and increased to 133 at the time of discharge. I did discontinue her hydrochloroth iazide due to her low sodiums, which I think were contributing significantly to her feeling of being unwell. I also did a Cortrosyn stim test, which showed an adequate but meager response to Cortrosy n, but I feel that she does not have adrenal insufficiency and does not need extra steroids at this time. Her blood pressure remained elevated off the hydrochlorothiazide, so I increased her Cozaar f rom 25-50 mg. This can be up titrated as an outpatient. CONDITION ON DISCHARGE: Good. Blood pressure is stable. She is alert and oriented and much more a ppropriate. She still feels a little bit weak and has some balance issues and will need a referral for physical therapy after discharge. DISCHARGE MEDICATIONS: Please see discharge medication form. I did prescribe her #60 of Percocet 5 /325, this is a slightly lower dose than she was on previously (7.5/325). I also increased her Coza ar from 25 to 50 mg daily, and discontinued her hydrochlorothiazide. FOLLOWUP INSTRUCTIONS: She should follow up with Dr. Zamudio for refill of her Percocet within 2 w eeks and follow up with Dr. Boyd this week. Total time spent with patient on day of discharge in coordination of care is 35 minutes. /[id number]/MODL
[2017-01-12] MEDS: ACETAMINOPHEN 325 MG TAB PO PRN (12:03)
== END 2017-01-12 13:03 | disposition home or self-care (01) | DRG 641 ==
LOC: F1N 11:49
PROVIDERS: ADMIT Student in an Organized Health Care Education/Training Program; ATTEND Internal Medicine
DX: E87.1 Hypo-osmolality and hyponatremia (principal); F11.23 Opioid dependence with withdrawal; J96.10 Chronic respiratory failure, unspecified whether with hypoxia or hypercapnia; G89.29 Other chronic pain; M54.9 Dorsalgia, unspecified; I10 Essential (primary) hypertension; I25.10 Atherosclerotic heart disease of native coronary artery without angina pectoris; E78.5 Hyperlipidemia, unspecified; K74.3 Primary biliary cirrhosis; I27.2 Other secondary pulmonary hypertension; M81.0 Age-related osteoporosis without current pathological fracture; H35.30 Unspecified macular degeneration
CPT/HCPCS: 97161-GP; 97165-GO; G8978-GP-CI; G8979-GP-CI; G8980-GP-CI; G8987-GO-CI; G8988-GO-CI; J0834; J1650

== ENCOUNTER 2017-01-30 19:32 | Observation (INO) | payer OTHER ==
[2017-01-30 19:37] VITALS: RESP 16
--- NOTE | 2017-01-30 19:57 | EDPHY ---
H & P Stated Complaint: dizziness, lightheadedness, recent admission for hyponatremia Time Seen by Provider: 01/30/17 19:41 HPI/ROS: CHIEF COMPLAINT: Dizzy and generalized weakness HISTORY OF PRESENT ILLNESS: Patient is an 81-year-old female who comes to the emergency department with her stating that she feels exactly like she did 2 weeks ago when she was admitted for hyponatremia. She states that she has been intermittently dizzy for the last couple of days and now persistently for the last couple of hours. She denies chest pain, palpitations or shortness of breath. She states that her symptoms are not worsened by head positioning. There constant. She does not have any focal weakness or deficits. Last time she was admitted she was taken off of her hydrochlorothiazide and had her Cozaar increased. She also had a low but normal cortisone stimulation test. She does have a history of chronic back pain, recent kyphoplasty and coronary artery disease. REVIEW OF SYSTEMS: Constitutional: denies: chills, fever, recent illness, recent injury EENTM: denies: blurred vision, double vision, nose congestion Respiratory: denies: cough, shortness of breath Cardiac: denies: chest pain, irregular heart rate, lightheadedness, palpitations Gastrointestinal/Abdominal: denies: abdominal pain, diarrhea, nausea, vomiting, blood streaked stools Genitourinary: denies: dysuria, frequency, hematuria, pain Musculoskeletal: denies: joint pain, muscle pain Skin: denies: lesions, rash, jaundice, bruising Neurological: See HPI, denies: headache, numbness, paresthesia, tingling Hematologic/Lymphatic: denies: blood clots, easy bleeding, easy bruising Immunologic/allergic: denies: HIV/AIDS, transplant EXAM: GENERAL: Well-appearing, well-nourished and in no acute distress. HEAD: Atraumatic, normocephalic. EYES: Pupils equal round and reactive to light, extraocular movements intact, sclera anicteric, conjunctiva are normal. ENT: Mild right-sided nystagmus, does not fatigue, TMs normal, nares patent, oropharynx clear without exudates. Moist mucous membranes. NECK: Normal range of motion, supple without lymphadenopathy or JVD. LUNGS: Breath sounds clear to auscultation bilaterally and equal. No wheezes rales or rhonchi. HEART: Regular rate and rhythm without murmurs, rubs or gallops. ABDOMEN: Soft, nontender, normoactive bowel sounds. No guarding, no rebound. No masses appreciated. BACK: No CVA tenderness, no spinal tenderness, step-offs or deformities EXTREMITIES: Normal range of motion, no pitting or edema. No clubbing or cyanosis. NEUROLOGICAL: Cranial nerves II through XII grossly intact. Normal speech, normal gait. 5/5 strength, normal movement in all extremities, normal sensation PSYCH: Normal mood, normal affect. SKIN: Warm, dry, normal turgor, no visible rashes or lesions. Source: Patient Exam Limitations: No limitations - Personal History Current Tetanus/Diphtheria Vaccine: Yes Tetanus Vaccine Date: 8 years ago - Medical/Surgical History Hx Asthma: No Hx Chronic Respiratory Disease: No Hx Diabetes: No Hx Cardiac Disease: Yes Hx Renal Disease: No Hx Cirrhosis: No Hx Alcoholism: No Hx HIV/AIDS: No Hx Splenectomy or Spleen Trauma: No Other PMH: LOW BACK PAIN,HTN,HIGH CHOL, KNEE SURGERY 07/2013/cardiac stents - Family History Significant Family History: No pertinent family hx - Social History Smoking Status: Former smoker Alcohol Use: Sober Drug Use: None Constitutional: Initial Vital Signs Temperature (C) 36.5 C 01/30/17 19:34 Heart Rate 80 01/30/17 19:34 Respiratory Rate 16 01/30/17 19:34 Blood Pressure 212/107 H 01/30/17 19:34 O2 Sat (%) 97 01/30/17 19:34 O2 Delivery Mode Room Air Allergies/Adverse Reactions: Sulfa (Sulfonamide Antibiotics) Allergy (Verified 01/30/17 19:37) Home Medications: Medication Instructions Recorded Atorvastatin Calcium [Lipitor 20 20 mg PO DAILY 12/12/12 mg (*)] Cyclobenzaprine [Flexeril 10 MG 10 mg PO DAILY PRN 12/12/12 (*)] Diazepam [Valium 5 MG (*)] 5 mg PO DAILY PRN 12/12/12 Multivitamins [Multivitamin (*)] 1 each PO DAILY 06/27/13 Ursodiol [Actigall 300MG (*)] 600 mg PO DAILY 06/30/13 Polyethylene Glycol 3350 [Miralax 17 gm PO DAILY 10/03/13 17 gm (*)] Zolpidem Tartrate [Ambien 5MG (*)] 5 mg PO HS 10/03/13 Aspirin 325 mg PO DAILY #0 tablet 10/06/13 Labetalol HCl [Trandate 200 mg (*)] 200 mg PO BID 11/17/13 Ascorbic Acid [Vitamin C 500 mg 1,000 mg PO DAILY 01/10/17 (*)] Beta-Carotene(A) W-C & E/Min 2 tab PO BID 01/10/17 [Ocuvite] Calcium Carb W/Vit D [Calcium Carb 1,000 mg PO DAILY 01/10/17 W/Vit D 500/200 (*)] Omeprazole [Prilosec 20 mg] 20 mg PO DAILY 01/10/17 Prazosin HCl [Minipress 1mg (*)] 1 mg PO HS 01/10/17 Ursodiol [Actigall 300MG (*)] 300 mg PO HS 01/10/17 Vitamin B Complex [B Complex] 1 each PO DAILY 01/10/17 Ibuprofen [Motrin (*)] 400 mg PO Q8 PRN #0 tab 01/12/17 Losartan Potassium [Cozaar 50 mg 50 mg PO DAILY #30 tab 01/12/17 (*)] Calcium Carbonate [Tums 500MG (*)] 500 mg PO Q4-6PRN PRN 01/30/17 Denosumab [Prolia] 60 mg SQ Q180D 01/30/17 Mirtazapine [Remeron] 15 mg PO HS 01/30/17 Oxycodone HCl/Acetaminophen 1 each PO Q4-6PRN PRN 01/30/17 [Oxycodon-Acetaminophen 7.5-325] amLODIPine BESYLATE [Norvasc 5 mg 5 mg PO DAILY PRN #30 tab 01/31/17 (*)] Medical Decision Making - Diagnostics EKG Interpretation: An EKG obtained and was read and documented in trace view. Please see trace view for full reading and report. Sinus rhythm, unchanged from previous ED Course/Re-evaluation: 9:00 p.m. we discussed the test results thus far. We agreed to perform an MRI to rule out [employer] lesion. This may also be why she previously had low sodium. She has not fatigable nystagmus to the left and persistent symptoms which is not consistent with a peripheral lesion. I suggested admission for further workup and observation and consultation. She and her agree. 9:25 p.m. I discussed the case with Dr. Eusebio Reyes who will admit to the medical service. Differential Diagnosis: Partial list of the Differential diagnosis considered include but were not limited to; [employer] tumor, lesion, CVA, peripheral vertigo, electrolyte abnormality and although unlikely based on the history and physical exam, I also considered infection, urinary tract infection, dehydration . - Data Points Laboratory Results: Laboratory Results 01/30/17 19:50 01/30/17 19:50 Medications Given: Discontinued Medications Aspirin (Aspirin) 325 mg PO DAILY BRYNN Stop: 07/30/17 08:59 Last Admin: 01/31/17 09:23 Dose: 325 mg Atorvastatin Calcium (Lipitor) 20 mg PO DAILY BRYNN Stop: 07/30/17 08:59 Last Admin: 01/31/17 09:21 Dose: 20 mg Labetalol HCl (Trandate) 200 mg PO BID BRYNN Stop: 07/30/17 03:59 Last Admin: 01/31/17 09:22 Dose: 200 mg Losartan Potassium (Cozaar) 50 mg PO DAILY BRYNN Stop: 07/30/17 08:59 Last Admin: 01/31/17 09:22 Dose: 50 mg Mirtazapine (Remeron) 15 mg PO HS [facility] Stop: 07/30/17 02:51 Last Admin: 01/31/17 04:44 Dose: 15 mg Oxycodone/Acetaminophen (Percocet 5/325) 1.5 tab PO Q4 PRN PRN Reason: Pain, Severe Able to Take PO Stop: 02/10/17 02:45 Last Admin: 01/31/17 09:20 Dose: 1.5 tab Pantoprazole Sodium (Protonix) 40 mg PO DAILY BRYNN Stop: 07/30/17 08:59 Last Admin: 01/31/17 09:23 Dose: 40 mg Ursodiol (Actigall) 600 mg PO DAILY BRYNN Stop: 07/30/17 08:59 Last Admin: 01/31/17 09:48 Dose: 600 mg Zolpidem Tartrate (Ambien) 5 mg PO HS BRYNN Stop: 07/30/17 02:51 Last Admin: 01/31/17 04:49 Dose: 5 mg Departure - Departure Disposition: [facility]patient Acute Clinical Impression: Vertigo Condition: Fair
[2017-01-30 19:59] LABS: % IMMATURE GRANULYOCYTES 0.5 % (0.0-1.1); ABSOLUTE IMMATURE GRANULOCYTES 0.05 10^3/uL (0.00-0.10); ADD DIFF? NO; ADD MORPH? NO; ADD SCAN? NO; ATYPICAL LYMPHOCYTE FLAG 10 (0-99); FRAGMENT RBC FLAG 0 (0-99); HEMATOCRIT 35.1 % (38.0-47.0); HEMOGLOBIN 11.4 g/dL (12.6-16.3); LEFT SHIFT FLG 0 (0-99); LIPEMIA HEMOLYSIS FLAG 80 (0-99); MEAN CELL HEMOGLOBIN 29.1 pg (27.9-34.1); MEAN CELL HEMOGLOBIN CONCENTR. 32.5 g/dL (32.4-36.7); MEAN CELL VOLUME 89.5 fL (81.5-99.8); MEAN PLATELET VOLUME 8.5 fL (8.7-11.7); PLATELET CLUMPS FLAG 0 (0-99); PLATELET COUNT 474 10^3/uL (150-400); RED BLOOD CELL COUNT 3.92 10^6/uL (4.18-5.33); RED CELL DISTRIBUTION WIDTH 19.4 % (11.5-15.2)
--- NOTE | 2017-01-30 20:09 | CPEKG ---
Heart Rate: 84 RR Interval: 714 P-R Interval: 196 QRSD Interval: 92 QT Interval: 372 QTC Interval: 440 P [place]: 0 QRS [place]: -15 T Wave [place]: 63 EKG Severity - ABNORMAL ECG - EKG Impression: SINUS RHYTHM EKG Impression: LEFT VENTRICULAR HYPERTROPHY EKG Impression: INFERIOR INFARCT, OLD EKG Impression: similar to previous Electronically Signed By: Da Bunch 30-Jan-2017 20:11:59
[2017-01-30 20:14] LABS: ANION GAP 14 mEq/L (8-16); CALCIUM 9.8 mg/dL (8.5-10.4); CARBON DIOXIDE 22 mEq/l (22-31); CHLORIDE 100 mEq/L (97-110); CREATININE 0.7 mg/dL (0.6-1.0); GLOMERULAR FILTRATION RATE > 60; GLUCOSE 83 mg/dL (70-100); POTASSIUM 4.5 mEq/L (3.5-5.2); SODIUM 136 mEq/L (134-144)
[2017-01-30 20:24] LABS: TROPONIN I < 0.012 ng/mL (0-0.034)
[2017-01-30] MEDS ORDERED: GADOBUTROL 10 ML VIAL IVP ONE (21:43)
[2017-01-31] MEDS ORDERED: OXYCODONE/APAP 5/325 TAB PO PRN (02:46)
[2017-01-31] MEDS ORDERED: POLYETHYLENE GLYCOL 3350 17 GM PKT PO PRN (02:46)
[2017-01-31] MEDS ORDERED: MIRTAZAPINE 15 MG TAB PO SCH (02:52)
[2017-01-31] MEDS ORDERED: ZOLPIDEM TARTRATE 5 MG TAB PO SCH (02:52)
[2017-01-31] MEDS ORDERED: ACETAMINOPHEN 325 MG TAB PO PRN (02:53)
[2017-01-31] MEDS ORDERED: ONDANSETRON 4 MG/2 ML VIAL IVP PRN (02:53)
[2017-01-31] MEDS ORDERED: ONDANSETRON DISINTEGRATING 4 MG TAB PO PRN (02:53)
[2017-01-31] MEDS ORDERED: LABETALOL HCL 200 MG TAB PO SCH ×2 (02:57→09:00)
--- NOTE | 2017-01-31 04:22 | GHP ---
[f rep st] HISTORY AND PHYSICAL DATE OF ADMISSION: 01/30/2017 CHIEF COMPLAINT: Headache. HISTORY OF PRESENT ILLNESS: The patient is an 81-year-old female with a history of hypertension, hyperlipidemia and coronary artery disease with an ischemic cardiomyopathy who presents to the emergency department with a headache. She was admitted to the hospital 2 weeks ago with hyponatremia and felt this was similar to how she felt at that time. She specifically denies dizziness, lightheadedness or vertigo. She states her symptoms are more consistent with a headache, describes this as feeling as though her head is plugged and that this is a diffuse feeling over the whole top of her head. She denies any chest pain or shortness of breath. She has had no nausea, vomiting, diarrhea, or abdominal symptoms. There have been no changes in her bowel or bladder habits. She has had no fevers. In the emergency department, she had a brain MRI which showed some nonspecific, non-enhancing white matter lesions within the supratentorial brain, possibly related to her age. She was admitted to the hospital for further evaluation. PAST MEDICAL HISTORY: 1. Hypertension. 2. Coronary artery disease, status post stenting of her LAD and RCA most recently in 2013. She is followed by Dr. Grimes. 3. Ischemic cardiomyopathy with a recent echocardiogram showing ejection fraction of 60% to 65% which is improved from 40% in 2014. 4. Moderate pulmonary hypertension. 5. Mitral regurgitation. 6. Primary biliary cirrhosis followed by Dr. Fraire. 7. History of degenerative disc and degenerative joint disease. 8. Chronic pain due to above with chronic opioid use. 9. Spondylosis. 10. Osteoporosis with a history of compression fractures. 11. Macular degeneration. MEDICATIONS: Please see [facility] for complete updated outpatient medication list. ALLERGIES: Sulfa. SOCIAL HISTORY: The patient is she lives independently with her . She does not use a walker. She denies tobacco use but does endorse daily wine use, 2 glasses. FAMILY HISTORY: Her father in a car accident. Her mother had osteoporosis. REVIEW OF SYSTEMS: A 10-point review of systems was performed and is negative except as per HPI. OBJECTIVE: VITAL SIGNS: Blood pressure on arrival was 212/107, current blood pressure 172/95; temperature 36.8; heart rate 78; respiratory rate 16; she is 94 % on room air. GENERAL: The patient is awake, alert, oriented, in no acute distress. HEENT: Head is atraumatic, normocephalic. Pupils equal, round, and reactive to light. There is no appreciable nystagmus. Extraocular muscles are intact. Oropharynx is clear. Mucous membranes are moist. NECK: Supple. There is no JVD. HEART: Regular rate and rhythm. LUNGS: Clear to auscultation bilaterally. ABDOMEN: Soft, nondistended, nontender with normoactive bowel sounds. EXTREMITIES: She has multiple bruises on bilateral extremities with thin skin. Otherwise, no cyanosis, clubbing or edema. NEUROLOGIC: There is no facial asymmetry. Pronator drift is negative. She has symmetric muscle strength in bilateral upper and lower extremities, 5/5. Her gait is normal. LABORATORY DATA: CBC reveals a white blood cell count of 10.2, hemoglobin 11.4 , which is stable. Platelets 474. Basic metabolic panel is completely normal. Creatinine 0.7, blood sugar 83. Troponin is negative. EKG shows normal sinus rhythm with Q-waves in her inferior leads. Brain MRI shows nonspecific, nonenhancing white matter lesions in the supratentorial brain, often seen in this age group. There were no masses identified. ASSESSMENT AND PLAN: The patient is an 81-year-old female with a history of hypertension, hyperlipidemia, and coronary artery disease who presents to the emergency department with headache syndrome. 1. Headache. She specifically denies dizziness or vertigo. This is not positional. It is resolved since admission and I note her systolic blood pressure has dropped from 212 to 172. I suspect this headache is related to hypertension. I also considered sinus inflammation as she does sound a bit congested, though I favor the former diagnosis. Her headache seems to have resolved as her systolic blood pressure has come down. Further blood pressure management as below. Will request PT/OT evaluations for the morning. I noted her MRI findings. I think this is unlikely to be a contributory factor. Could consider a neurology consult in the morning if her symptoms persist. 2. Hypertensive urgency. As above, her symptoms have resolved with reduction of her systolic blood pressure. I am going to give her a dose of labetalol now , which she missed earlier this evening. We will continue her Cozaar in the morning and up titrate as indicated. 3. Coronary artery disease status post stenting with an ischemic cardiomyopathy. A recent echocardiogram showed a normalized ejection fraction. She has no chest pain. Her EKG is nonischemic and her troponin is negative. Will continue her outpatient medications. 4. Chronic pain secondary to degenerative disk and joint disease with chronic opioid use. She takes approximately 30 mg of hydrocodone per day. I discussed with her the potential side effects and increased fall risk with chronic opioids. In addition, I note that she is on several other high risk medications including Flexeril, Ambien and Valium. She will talk further with her primary care doctor regarding medication management in terms of safety and reducing her fall risk. 5. Deep venous thrombosis prophylaxis. We will place SCDs for now as I suspect the patient may be able to be discharged tomorrow and she is ambulatory. If she has a prolonged hospitalization would consider starting Lovenox. 6. Code status. The patient clearly states she wishes to be DNR. DISPOSITION: Patient is admitted to observation status. If her blood pressure and symptoms are improved in the morning she may be a candidate for discharge, otherwise she will be changed to inpatient. /[id number]/MODL MTDD
[2017-01-31] MEDS: LABETALOL HCL 200 MG TAB PO SCH ×2 (04:44→09:22)
[2017-01-31] MEDS ORDERED: PANTOPRAZOLE SODIUM 40 MG TAB PO SCH (09:00)
[2017-01-31] MEDS ORDERED: ATORVASTATIN CALCIUM 20 MG TAB PO SCH (09:00)
[2017-01-31] MEDS ORDERED: URSODIOL 300 MG CAP PO SCH ×2 (09:00→21:00)
[2017-01-31] MEDS ORDERED: LOSARTAN POTASSIUM 50 MG TAB PO SCH (09:00)
[2017-01-31] MEDS ORDERED: ASPIRIN 325 MG TAB PO SCH (09:00)
[2017-01-31 09:52] VITALS: O2SAT 95
--- NOTE | 2017-01-31 11:23 | GDS ---
[f rep st] DISCHARGE SUMMARY DISCHARGE DIAGNOSES: 1. Headache due to elevated blood pressure. 2. Elevated blood pressure, probably related to stress. 3. History of hypertension. 4. History of coronary artery disease. 5. History of ischemic cardiomyopathy. 6. Chronic pain. This is an 81-year-old female, who presented with headache and dizziness. HOSPITAL COURSE: Patient was admitted. Had an MRI of her brain, which did not show any etiologies of her headache. With improvement of her blood pressure her headache resolved. The following day h er headache was resolved. Her blood pressure is coming down. She states that she did have a stress ful event earlier in the day prior to admission. She suspects this is what might have drifted up he r blood pressure. PLAN: Patient will be discharged home with a prescription for Norvasc that she can take as needed i f her blood pressure is consistently over 180. She will follow up with her primary care doctor. Delmar arambulaor blood pressure more frequently. /[id number]/MODL
[2017-01-31 11:26] VITALS: BP 112/60; PULSE 77; TEMP 98.9
[2017-01-31] MEDS ORDERED: PRAZOSIN HCL 1 MG CAP PO SCH (21:00)
== END 2017-01-31 12:38 | disposition home or self-care (01) ==
LOC: F3N 22:41
PROVIDERS: ADMIT Internal Medicine; ATTEND Internal Medicine
DX: R51 Headache (principal); I16.0 Hypertensive urgency; I25.10 Atherosclerotic heart disease of native coronary artery without angina pectoris; I25.5 Ischemic cardiomyopathy; G89.29 Other chronic pain; M54.9 Dorsalgia, unspecified; I10 Essential (primary) hypertension; E78.5 Hyperlipidemia, unspecified; I27.2 Other secondary pulmonary hypertension; F11.20 Opioid dependence, uncomplicated; I34.0 Nonrheumatic mitral (valve) insufficiency; M81.0 Age-related osteoporosis without current pathological fracture; Z82.62 Family history of osteoporosis; Z95.5 Presence of coronary angioplasty implant and graft; Z66 Do not resuscitate
CPT/HCPCS: 70553; 93005; 97161; A9585; G0378; G8978; G8979; G8980

== ENCOUNTER → 2017-02-23 | Outpatient (CLI) | payer OTHER | LOC: BMCIMAGING 10:55 | PROVIDERS: ATTEND Family Medicine | DX: Z13.820 Encounter for screening for osteoporosis (principal); M85.80 Other specified disorders of bone density and structure, unspecified site ==

== ENCOUNTER → 2017-03-30 | Outpatient (CLI) | payer OTHER | LOC: BHFA 13:15 | PROVIDERS: ATTEND Internal Medicine Cardiovascular Disease | DX: I34.1 Nonrheumatic mitral (valve) prolapse (principal) ==

== ENCOUNTER → 2017-07-28 | Outpatient (CLI) | payer OTHER | LOC: FIMAGING 10:18 | PROVIDERS: ATTEND Family Medicine | DX: R05 Cough (principal); I51.7 Cardiomegaly; J98.11 Atelectasis ==

== ENCOUNTER 2018-01-03 09:18 | Emergency (ER) | payer OTHER ==
[2018-01-03] MEDS ORDERED: NS 500 ML IV ONE (09:34)
--- NOTE | 2018-01-03 09:38 | EDPHY ---
H & P Stated Complaint: cough/congestion sore throat/shaky Source: Patient, Family () Exam Limitations: No limitations - Personal History Current Tetanus Diphtheria and Acellular Pertussis (TDAP): Unsure Tetanus Vaccine Date: 8 years ago - Medical/Surgical History Hx Asthma: No Hx Chronic Respiratory Disease: No Hx Diabetes: No Hx Cardiac Disease: Yes Hx Renal Disease: No Hx Cirrhosis: No Hx Alcoholism: No Hx HIV/AIDS: No Hx Splenectomy or Spleen Trauma: No Other PMH: LOW BACK PAIN,HTN,HIGH CHOL, KNEE SURGERY 07/2013/cardiac stents - Social History Smoking Status: Former smoker Time Seen by Provider: 01/03/18 09:36 HPI/ROS: HPI: This 82-year-old female who presents with Chief Complaint: cough/congestion sore throat/shaky Location: Chest Quality: Cough Duration: 3-4 days Signs and Symptoms: no shortness of breath at rest, no shortness of breath on exertion, no cough, no chest pain, no palpitations, no lower extremity edema, no wheezing, no orthopnea, no paroxysmal nocturnal dyspnea, no fever, no injury/ trauma, no hemoptysis, no carpal pedal spasms Timing: Worsening Severity: Moderate Context: Patient has a history of coronary artery disease status post stenting of her LAD and RCA in 2013, hypertension, pulmonary hypertension, moderate mitral regurgitation, ischemic cardiomyopathy, primary biliary cirrhosis presents with complaints of generalized fatigue, decreased appetite, nonproductive cough, and sore throat for the last 3-4 days. was diagnosed with "influenza and started on antibiotics per him." She reports that she has a poor appetite has only a younger over the last 3-4 days. She denies any chest pain, shortness of breath, wheezing, abdominal pain, nausea, vomiting, urinary symptoms. Upon further questioning patient reports that she had this generalized tremor that has since resolved after IV fluids today. Modifying Factors: None Comment: ROS: see HPI Constitutional: No fever, no chills, no weight loss Eyes: No blurred vision Respiratory: No shortness of breath, no cough Cardiovascular: No chest pain, no palpitations, no lower extremity edema Gastrointestinal: No nausea, no vomiting, no diarrhea Genitourinary: No dysuria Extremities: No myalgias Neurologic: No weakness, no numbness Skin: No rashes Hematologic: No bruising, no bleeding MEDICAL/SURGICAL/SOCIAL HISTORY: Medical/Surgical history: LOW BACK PAIN,HTN, HIGH CHOLESTEROL, KNEE SURGERY, 2013/cardiac stents Social history: , retired. CONSTITUTIONAL: Extremely polite and cooperative nontoxic-appearing elderly white female, awake and alert, no obvious distress HEENT: Atraumatic and normocephalic, PERRL, EOMI. Nares patent; no rhinorrhea; no nasal mucosal edema. Tympanic membranes clear. Oropharynx clear, no exudate and moist pink mucosa. Airway patent. No lymphadenopathy. No meningismus. Cardiovascular: Normal S1/S2, regular rate, regular rhythm, without murmur rub or gallop. PULMONARY/CHEST: Symmetrical and nontender. Clear to auscultation bilaterally. Good air movement. No accessory muscle usage. ABDOMEN: Soft, nondistended, nontender, no rebound, no guarding, no peritoneal signs, no masses or organomegaly. No CVAT. EXTREMITIES: 2/2 pulses, strength 5/5, no deformities, no clubbing, no cyanosis or edema. NEUROLOGICAL: no focal neuro deficits. GCS 15. SKIN: Warm and dry, no erythema. no rash. Good capillary refill. (Chio Parekh) I have evaluated and participated in the management of this patient. My co- signature indicates that I have reviewed this chart and that I agree with the findings and the plan of care as documented. My personal history and physical findings include: 82-year-old female with a history of coronary artery disease and hypertension who presents with 3 days of dry cough, sore throat, fatigue, and anorexia. No fever. She has not had chest pain and does not feel short of breath. She also reports a generalized tremor that she noticed yesterday. At the time of my evaluation she had a right upper extremity tremor that appear to be an intentional tremor and was still through most of our interaction. On exam she is awake alert and fully oriented. Heart is regular rate and rhythm without murmur, rub, or gallop. Lungs are clear to auscultation. Abdomen is soft and nontender. I reviewed the patient's blood work and chest x-ray. Chest x-ray shows cardiomegaly and possible bronchitis. She is noted to be hyponatremic with a sodium of 127, lower than her usual values. Liver functions are stable. She is not hypoxic while in the emergency department. I feel that she likely has bronchitis and that the cough has worsened a sore throat. She was offered hospitalization for evaluation and treatment of her hyponatremia and her cough. She understands the risks and benefits of hospitalization and declines to stay overnight. I have encouraged close follow- up with her primary care physician and I have asked her to call her doctor's office tomorrow to arrange follow-up. (Ember Larkin) Constitutional: Initial Vital Signs Temperature (C) 36.6 C 01/03/18 09:23 Heart Rate 69 01/03/18 09:23 Respiratory Rate 18 01/03/18 09:23 Blood Pressure 178/100 H 01/03/18 09:23 O2 Sat (%) 98 01/03/18 09:23 O2 Delivery Mode Room Air Allergies/Adverse Reactions: Sulfa (Sulfonamide Antibiotics) Allergy (Verified 01/03/18 09:21) Home Medications: Medication Instructions Recorded Atorvastatin Calcium [Lipitor 20 20 mg PO DAILY 12/12/12 mg (*)] Cyclobenzaprine [Flexeril 10 MG 10 mg PO DAILY PRN 12/12/12 (*)] Diazepam [Valium 5 MG (*)] 5 mg PO DAILY PRN 12/12/12 Multivitamins [Multivitamin (*)] 1 each PO DAILY 06/27/13 Ursodiol [Actigall 300MG (*)] 600 mg PO DAILY 06/30/13 Polyethylene Glycol 3350 [Miralax 17 gm PO DAILY 10/03/13 17 gm (*)] Zolpidem Tartrate [Ambien 5MG (*)] 5 mg PO HS 10/03/13 Aspirin 325 mg PO DAILY #0 tablet 10/06/13 Labetalol HCl [Trandate 200 mg (*)] 200 mg PO BID 11/17/13 Ascorbic Acid [Vitamin C 500 mg 1,000 mg PO DAILY 01/10/17 (*)] Beta-Carotene(A) W-C & E/Min 2 tab PO BID 01/10/17 [Ocuvite] Calcium Carb W/Vit D [Calcium Carb 1,000 mg PO DAILY 01/10/17 W/Vit D 500/200 (*)] Omeprazole [Prilosec 20 mg] 20 mg PO DAILY 01/10/17 Prazosin HCl [Minipress 1mg (*)] 1 mg PO HS 01/10/17 Ursodiol [Actigall 300MG (*)] 300 mg PO HS 01/10/17 Vitamin B Complex [B Complex] 1 each PO DAILY 01/10/17 Ibuprofen [Motrin (*)] 400 mg PO Q8 PRN #0 tab 01/12/17 Losartan Potassium [Cozaar 50 mg 50 mg PO DAILY #30 tab 01/12/17 (*)] Calcium Carbonate [Tums 500MG (*)] 500 mg PO Q4-6PRN PRN 01/30/17 Denosumab [Prolia] 60 mg SQ Q180D 01/30/17 Mirtazapine [Remeron] 15 mg PO HS 01/30/17 Oxycodone HCl/Acetaminophen 1 each PO Q4-6PRN PRN 01/30/17 [Oxycodon-Acetaminophen 7.5-325] amLODIPine BESYLATE [Norvasc 5 mg 5 mg PO DAILY PRN #30 tab 01/31/17 (*)] Azithromycin [Zithromax] 250 mg PO DAILY #6 tab 01/03/18 Benzonatate [Tessalon Pearles (RX)] 100 mg PO Q6 PRN #12 cap 01/03/18 Medical Decision Making ED Course/Re-evaluation: Labs, IV fluids, chest x-ray ordered Vital signs reviewed and show blood pressure to be 178/100 1000: Notified by nursing that troponin is negative Chest x-ray my read shows peribronchial thickening and old compression fractures. Azithromycin given. Reassessed patient who reports that generalized achiness and headache have mildly improved. Labs reviewed. Sodium 127, creatinine 0.5, WBCs 13.73, alk-phos 272, ALT 63, AST 49. Sodium is lower than normal. LFTs appear near baseline. Urinalysis shows no signs of yue infection. Discussed case with attending regarding low-sodium and patient politely refusing to be admitted to the hospital for IV fluids and repeat labs. Patient reports that she can follow up with primary care provider. Will give her course of azithromycin to treat her bronchitis presumed bacterial in nature. She is to have repeat lab work in 2-3 days. She has been told that if there is any worsening of symptoms she is to come to the emergency room. This patient was seen under the supervision of my secondary supervising physician. I evaluated care for this patient independently. Discussed this patient with Dr. Larkin who did see the patient. (Chio Parekh) Differential Diagnosis: Differential including but not limited to viral syndromes including influenza, urinary tract infection, pneumonia and sepsis. (Chio Parekh) - Data Points Laboratory Results: Laboratory Results 01/03/18 09:45 01/03/18 09:45 Medications Given: Discontinued Medications Azithromycin (Zithromax) 500 mg PO EDNOW ONE PRN Reason: Protocol Stop: 01/03/18 10:42 Last Admin: 01/03/18 10:50 Dose: 500 mg Sodium Chloride (Ns) 500 mls @ 1,000 mls/hr IV EDNOW ONE PRN Reason: Protocol Stop: 01/03/18 10:03 Last Admin: 01/03/18 09:42 Dose: 500 mls Point of Care Test Results: Chemistry 01/03/18 09:51 POC Troponin I 0.00 ng/mL ng/mL (0.00-0.08) Departure - Departure Disposition: Home, Routine, Self-Care Clinical Impression: Hyponatremia, Acute bacterial bronchitis Condition: Good Instructions: Benzonatate (By mouth), Azithromycin (By mouth), Hyponatremia (ED ), Acute Bronchitis (ED) Additional Instructions: Take Tylenol 650 mg every 4 hours and/or Ibuprofen 600 mg every 8 hours with food as needed for pain. Consume a minimum of 8-10 glasses of water or electrolyte fluid replacement drinks that include Gatorade, Powerade, Pedialyte. Please take Azithromycin as prescribed. Do not skip a dose. Follow-up with primary care provider in 2-3 days. You will need to have repeat lab work to make sure that your sodium level is improving. Follow-Up: Please follow-up as noted above. Follow-up sooner if your condition worsens or if you develop any new problems. Call as soon as possible for an appointment. Be clear when you call for an appointment that this is an Emergency Department follow-up. Contact the Emergency Department if you have trouble arranging follow-up care. Our referrals are not based on your insurance network. When time allows, contact your insurance carrier to verify the referral physician is in your plan. If not, get a referral for an in-network mgr. Referrals: Keila Vargas MD [Primary Care Provider] - 2-3 days without fail Prescriptions: Azithromycin [Zithromax] 250 mg PO DAILY #6 tab Benzonatate [Tessalon Pearles (RX)] 100 mg PO Q6 PRN #12 cap PRN Reason: Cough, Moderate
[2018-01-03 09:54] LABS: PLATELET COUNT 339 10^3/uL (150-400)
[2018-01-03] MEDS ORDERED: AZITHROMYCIN 250 MG TAB PO ONE (10:41)
[2018-01-03 11:24] VITALS: BP 178/87
== END 2018-01-03 11:35 | disposition home or self-care (01) ==
DX: J20.9 Acute bronchitis, unspecified (principal); E87.1 Hypo-osmolality and hyponatremia; E86.9 Volume depletion, unspecified; I10 Essential (primary) hypertension; I25.10 Atherosclerotic heart disease of native coronary artery without angina pectoris; Z79.82 Long term (current) use of aspirin; Z87.891 Personal history of nicotine dependence; Z95.5 Presence of coronary angioplasty implant and graft
CPT/HCPCS: 84484-PO

== ENCOUNTER → 2018-02-24 | Outpatient (CLI) | payer OTHER ==
[~2018-02-24] MED LIST changes: -DEXAMETHASONE 10 MG/ML VIAL IVP ONE; +IOPAMIDOL (ISOVUE-300) 100 ML BTL ONE; -NS 1,000 ML IV ONE; -ceFAZolin 2 GM/DEXTROSE 100 ML IV ONE
== END ==
LOC: FIMAGING 12:29
PROVIDERS: ATTEND Internal Medicine
DX: R10.31 Right lower quadrant pain (principal)
CPT/HCPCS: 74177; Q9967

== ENCOUNTER → 2018-03-19 | Outpatient (CLI) | payer OTHER | LOC: BHFA 10:45 | PROVIDERS: ATTEND Internal Medicine Cardiovascular Disease | DX: I05.9 Rheumatic mitral valve disease, unspecified (principal); I25.10 Atherosclerotic heart disease of native coronary artery without angina pectoris ==

== ENCOUNTER → 2018-05-11 | Outpatient (CLI) | payer OTHER | LOC: BHFA 09:30 | PROVIDERS: ATTEND Internal Medicine Cardiovascular Disease | DX: I25.10 Atherosclerotic heart disease of native coronary artery without angina pectoris (principal); I20.9 Angina pectoris, unspecified; R06.09 Other forms of dyspnea; I27.20 Pulmonary hypertension, unspecified | CPT/HCPCS: 78452; 93017; A9500 ==